=== PATIENT | female | born 1980 | race Caucasian/White ===

== ENCOUNTER 2023-10-25 15:57 | Emergency (ER) | payer BC ==
[~2023-10-25] VITALS: Ht 162.6 cm; Wt 50.0 kg
[2023-10-25 16:01] VITALS: O2SAT 96
[2023-10-25] MEDS: SODIUM CHLORIDE 0.9% 1,000 ML IV ONE ×2 (17:07→17:55)
[2023-10-25] MEDS: KETOROLAC 30MG/ML VIAL IV ONE (17:11)
[2023-10-25] MEDS: ONDANSETRON HCL 4MG/2ML INJ IV ONE (17:11)
[2023-10-25 17:32] LABS: BASOPHILS % 0.2 % (0.0-2.0); EOSINOPHILS % 0.3 % (0.0-5.0); HEMATOCRIT. 39.2 % (36.0-48.0); HEMOGLOBIN. 13.3 g/dL (12.0-16.0); LYMPHOCYTES % 13.4 % (20.0-50.0); MEAN CORPUSCULAR HGB CONC 33.9 g/dL (31.0-37.0); MEAN CORPUSCULAR VOLUME 91.5 fL (81.0-99.0); MEAN PLATELET VOLUME 9.3 fl (7.4-10.4); MONOCYTES % 4.3 % (2.0-8.0); NEUTROPHILS % 81.8 % (40.0-76.0); PLATELET 270 x1000/uL (130-400); RED BLOOD CELL COUNT 4.29 mill/uL (4.2-5.4); RED CELL DISTRIBUTION WIDTH 12.8 % (11.6-14.6); WHITE BLOOD COUNT 8.9 x1000/uL (4.5-11.0)
[2023-10-25 17:38] LABS: CLARITY URINE CLOUDY (CLEAR); COLOR URINE YELLOW (YELLOW); GLUCOSE URINE NEGATIVE (NEGATIVE); KETONES URINE 3+ (NEGATIVE); LEUKOCYTE ESTERASE URINE 2+ (NEGATIVE); NITRITE URINE NEGATIVE (NEGATIVE); OCCULT BLOOD URINE NEGATIVE (NEGATIVE); PH URINE 5.5 (4.5-8.0); PROTEIN URINE NEGATIVE (NEGATIVE); SPECIFIC GRAVITY URINE 1.025 (1.005-1.030); UROBILINOGEN URINE 0.2 E.U./dL (0.2-1.0)
[2023-10-25 17:46] LABS: CHLORIDE 105 mEq/L (98-107); POTASSIUM 3.5 mEq/L (3.5-5.1); SODIUM 137 mEq/L (136-145)
[2023-10-25 17:48] LABS: CALCIUM 9.6 mg/dL (8.7-10.4); CARBON DIOXIDE 22 mEq/L (21-32)
[2023-10-25 17:53] LABS: CREATININE 0.7 mg/dL (0.6-1.0); GLUCOSE 124 mg/dL (70-105)
[2023-10-25 17:54] LABS: UREA NITROGEN BLOOD 14 mg/dL (9-23)
[2023-10-25 17:54] LABS: *AMPHETAMINES SCREEN URINE NEGATIVE (NEGATIVE); *BARBITURATES SCREEN URINE NEGATIVE (NEGATIVE); *BENZODIAZEPINES SCREEN URINE PRESUMPTIVE POSITIVE (NEGATIVE)
[2023-10-25 17:55] LABS: ALANINE AMINOTRANSFERASE 17 IU/L (10-49); ALBUMIN 4.7 g/dL (3.2-4.8); ASPARTATE AMINOTRANSFERASE 25 IU/L (<34); BILIRUBIN DIRECT 0.1 mg/dL (<=3.0); BILIRUBIN TOTAL 0.5 mg/dL (0.1-1.0); PROTEIN TOTAL 7.6 g/dL (6.0-8.3)
[2023-10-25 17:55] LABS: *COCAINE SCREEN URINE NEGATIVE (NEGATIVE); CANNABINOID URINE SCREEN NEGATIVE (NEGATIVE); ECSTASY MDMA SCREEN URINE NEGATIVE (NEGATIVE); METHADONE URINE SCREEN NEGATIVE (NEGATIVE); OPIATES URINE SCREEN NEGATIVE (NEGATIVE); PHENCYCLIDINE URINE SCREEN NEGATIVE (NEGATIVE)
[2023-10-25 18:12] LABS: BACTERIA URINE 3+; RBC URINE 0-2 /hpf (0-2); SQUAMOUS EPITHELIAL CELL URINE 3+ /lpf (RARE/1+); WBC URINE 25-50 /hpf (0-2)
[2023-10-25] MEDS: METOCLOPRAMIDE HCL 10MG/2ML VIAL IV ONE (19:00)
[2023-10-25] MEDS: CEFTRIAXONE 1GM/50ML 50 ML IV ONE (19:01)
[2023-10-25] MEDS: ACETAMINOPHEN 1000MG/100ML 100 ML IV ONE (19:31)
[2023-10-25] MEDS ORDERED: NITR-87 MT (20:45)
[2023-10-25] MEDS ORDERED: ONDA4TAB11 PO (20:45)
[2023-10-25 21:02] VITALS: BP 108/64; PULSE 100; RESP 13; TEMP 98.2
== END 2023-10-25 21:07 | disposition home or self-care (01) ==
LOC: ER 15:57
DX: N39.0 Urinary tract infection, site not specified (principal); E86.0 Dehydration
CPT/HCPCS: 80076; 80305; 80048; 81003; 83690; 85025; 87040; 87086; 36415; 96361; 96365; 96375; 99285; J0696; J1885; J2765; J2405; J7030; Z7610 ×3; J0131